=== PATIENT | female | born 1980 | race Caucasian/White ===

== ENCOUNTER 2025-06-20 13:48 | Outpatient (CLI) | payer OTHER | END 2025-06-20 13:49 | disposition home or self-care (01) | LOC: RAD 13:48 | PROVIDERS: ATTEND Student in an Organized Health Care Education/Training Program | DX: C34.11 Malignant neoplasm of upper lobe, right bronchus or lung (principal); Z98.890 Other specified postprocedural states | CPT/HCPCS: 71046 ==